=== PATIENT | male | born 1935 | race Caucasian/White ===

== ENCOUNTER 2017-08-25 19:55 | Inpatient (IN) ==
[2017-08-25 20:12] LABS: Basophils % 0.6 % (0.0-0.8); Hematocrit 41.8 VOL% (42.0-52.0); Hemoglobin 14.1 GM/DL (14.0-18.0); Immature Granulocytes % 0.6 %; Immature Granulocytes Absolute 0.02 #; Lymphocytes # 0.7 10*3/uL (1.4-4.0); Mean Corpuscular HGB Conc 33.7 GM/DL (32-36); Mean Corpuscular Hemoglobin 33 PG (27-34); Mean Platelet Volume 10.8 FL (9.6-12.0); Monocytes # 0.5 10*3/uL (0.11-0.8); Monocytes % 12.5 % (1.7-12.7); Neutrophils # 2.5 10*3/uL (1.4-7.4); Neutrophils % 68.3 % (38.7-73.9); Platelet Count 120 T/CUMM (130-400); Red Blood Count 4.31 MC/CUMM (3.8-5.5); Red Cell Distribution Width 13.4 % (9.3-17.3); White Blood Count 3.6 T/CUMM (4-12)
[2017-08-25 20:22] LABS: Ammonia < 10 UMOL/L (11-32)
[2017-08-25 20:27] LABS: Lactic Acid 1.3 MMOL/L (0.4-2.0)
[2017-08-25 20:29] LABS: Alanine Aminotransferase 17 U/L (16-61); Albumin 3.2 G/DL (3.4-5.0); Alkaline Phosphatase 75 U/L (45-117); Aspartate Amino Transferase 37 U/L (0-37); Bilirubin,Total < 0.39 MG/DL (0.2-1.0); Blood Urea Nitrogen 15 MG/DL (7-18); Calcium 7.9 MG/DL (8.5-10.1); Glucose 87 MG/DL (74-106); Osmolality,Calculated 265.4 MOS/KG (273-304); Sodium 133 MMOL/L (136-145)
[2017-08-25 20:32] LABS: Band Neutrophils 10 % (0-10); Lymphocytes 21 % (20-55); Segmented Neutrophils 66 % (50-85); Total Cells Counted 100
[2017-08-25 20:33] LABS: Platelet Estimate Adequate
[2017-08-25] MEDS ORDERED: SODIUM CHLORIDE 0.9% 1,000 ML IV STA (20:44)
[2017-08-25] MEDS ORDERED: ACETAMINOPHEN 325 MG TABLET PO ONE (20:44)
[2017-08-25] MEDS ORDERED: cefTRIAXone 1,000 MG in SODIUM CHLORIDE 0.9% 100 ML IV STA (22:06)
[2017-08-25] MEDS ORDERED: AZITHROMYCIN INJ 500 MG in SODIUM CHLORIDE 0.9% 250 ML IV STA (22:06)
[2017-08-25] MEDS ORDERED: SODIUM CHLORIDE 0.9% 1,000 ML IV ONE (22:06)
[2017-08-25 23:14] LABS: Apearance,Urine CLEAR (Clear); Bilirubin,Urine Negative (Negative); Blood, Urine Negative (Negative); Glucose,Urine (UA) Negative (Negative); Ketones,Urine 5 mg/dL (Negative); Mucus,Urine Occasional /LPF (Occasional); Nitrite,Urine Negative (Negative); Protein,Urine Negative; RBC,Urine 1 /HPF (0-4); Urine Color Yellow (Yellow); Urine Specific Gravity 1.012 (1.001-1.035); WBC,Urine <1 /HPF (0-6)
[2017-08-25] MEDS ORDERED: ONDANSETRON 4 MG/2 ML VIAL IV PRN (23:37)
[2017-08-25] MEDS ORDERED: NITROGLYCERIN SL 0.4 MG TABLET SL PRN (23:46)
[2017-08-26] MEDS ORDERED: AZITHROMYCIN INJ 500 MG in SODIUM CHLORIDE 0.9% 250 ML IV STA (00:14)
[2017-08-26] MEDS ORDERED: AZITHROMYCIN 500 MG VIAL IV ONE (00:16)
[2017-08-26] MEDS ORDERED: cefTRIAXone 1,000 MG in SYRINGE 1 EACH IV SCH (02:00)
[2017-08-26] MEDS: ALPRAZolam 0.25 MG TABLET PO SCH ×3 (03:05→21:30)
[2017-08-26] MEDS ORDERED: ALBUTEROL/IPRATROPIUM 3 ML NEB RESP TX PRN (03:30)
[2017-08-26] MEDS: SODIUM CHLORIDE 0.9% 1,000 ML IV SCH ×2 (03:40→16:36)
[2017-08-26 05:09] LABS: Basophils % 0.6 % (0.0-0.8); Hematocrit 38.6 VOL% (42.0-52.0); Immature Granulocytes % 0.9 %; Immature Granulocytes Absolute 0.03 #; Lymphocytes # 0.6 10*3/uL (1.4-4.0); Lymphocytes % 18.6 % (21.2-54.2); Mean Corpuscular HGB Conc 33.7 GM/DL (32-36); Mean Corpuscular Hemoglobin 33 PG (27-34); Mean Corpuscular Volume 97.2 FL (87-102); Mean Platelet Volume 11.1 FL (9.6-12.0); Monocytes # 0.3 10*3/uL (0.11-0.8); Monocytes % 9.8 % (1.7-12.7); Neutrophils # 2.4 10*3/uL (1.4-7.4); Neutrophils % 70.1 % (38.7-73.9); Platelet Count 100 T/CUMM (130-400); Red Blood Count 3.97 MC/CUMM (3.8-5.5); Red Cell Distribution Width 13.6 % (9.3-17.3); White Blood Count 3.4 T/CUMM (4-12)
[2017-08-26 05:42] LABS: Hypochromasia Slight; Microcytosis Slight
[2017-08-26 05:43] LABS: Platelet Estimate Decreased
[2017-08-26 06:03] LABS: Calcium 8.1 MG/DL (8.5-10.1); Osmolality,Calculated 273.7 MOS/KG (273-304); Potassium 3.9 MMOL/L (3.5-5.1); Risk Ratio 4.03; Thyroid Stimulating Hormone 1.03 uIU/ml (0.358-3.74); VLDL CHOLESTEROL 14.8 MG/DL
[2017-08-26] MEDS: CYANOCOBALAMIN 500 MCG TABLET PO SCH (08:58)
[2017-08-26] MEDS: ESCITALOPRAM 10 MG TABLET PO SCH (08:58)
[2017-08-26] MEDS ORDERED: APIXABAN 2.5 MG TABLET PO SCH (09:00)
[2017-08-26] MEDS: CLOPIDOGREL 75 MG TABLET PO SCH (12:04)
[2017-08-26] MEDS: NICOTINE 14 MG/24 HR PATCH TRANSDERM SCH (14:50)
[2017-08-26] MEDS: ACETAMINOPHEN 325 MG TABLET PO PRN (16:12)
[2017-08-26] MEDS: CARVEDILOL 3.125 MG TABLET PO SCH (21:30)
[2017-08-27] MEDS ORDERED: AZITHROMYCIN INJ 500 MG in SODIUM CHLORIDE 0.9% 250 ML IV SCH (02:00)
[2017-08-27] MEDS: cefTRIAXone 1,000 MG in SYRINGE 1 EACH IV SCH (03:03)
[2017-08-27] MEDS: SODIUM CHLORIDE 0.9% 1,000 ML IV SCH ×2 (03:45→17:55)
[2017-08-27] MEDS: ACETAMINOPHEN 325 MG TABLET PO PRN ×2 (05:48→17:55)
[2017-08-27 05:58] LABS: INR 1.1
[2017-08-27 06:05] LABS: Basophils % 0.4 % (0.0-0.8); Hematocrit 35.2 VOL% (42.0-52.0); Hemoglobin 12.5 GM/DL (14.0-18.0); Immature Granulocytes % 1.2 %; Immature Granulocytes Absolute 0.03 #; Lymphocytes # 0.5 10*3/uL (1.4-4.0); Lymphocytes % 20.5 % (21.2-54.2); Mean Corpuscular HGB Conc 35.5 GM/DL (32-36); Mean Corpuscular Hemoglobin 33 PG (27-34); Mean Corpuscular Volume 93.4 FL (87-102); Mean Platelet Volume 11.2 FL (9.6-12.0); Monocytes # 0.2 10*3/uL (0.11-0.8); Monocytes % 6.2 % (1.7-12.7); Neutrophils # 1.9 10*3/uL (1.4-7.4); Neutrophils % 71.7 % (38.7-73.9); Platelet Count 88 T/CUMM (130-400); Red Blood Count 3.77 MC/CUMM (3.8-5.5); Red Cell Distribution Width 13.6 % (9.3-17.3); White Blood Count 2.6 T/CUMM (4-12)
[2017-08-27 06:12] LABS: Calcium 7.3 MG/DL (8.5-10.1); Osmolality,Calculated 271.8 MOS/KG (273-304); Potassium 3.5 MMOL/L (3.5-5.1)
[2017-08-27 06:29] LABS: Band Neutrophils 17 % (0-10); Hypochromasia 1+; Lymphocytes 18 % (20-55); Segmented Neutrophils 57 % (50-85); Total Cells Counted 100
[2017-08-27 06:30] LABS: Microcytosis Slight; Platelet Estimate Decreased
[2017-08-27] MEDS ORDERED: MAGNESIUM SULF RIDER 2 GM in PREMIX 1 EACH IV PRN ×2 (08:42→08:55)
[2017-08-27] MEDS ORDERED: MAGNESIUM SULF RIDER 4 GM in PREMIX 1 EACH IV PRN ×2 (08:42→08:55)
[2017-08-27] MEDS: ALPRAZolam 0.25 MG TABLET PO SCH ×2 (10:26→21:57)
[2017-08-27] MEDS: CLOPIDOGREL 75 MG TABLET PO SCH (10:26)
[2017-08-27] MEDS: CYANOCOBALAMIN 500 MCG TABLET PO SCH (10:26)
[2017-08-27] MEDS: ESCITALOPRAM 10 MG TABLET PO SCH (10:27)
[2017-08-27] MEDS: NICOTINE 14 MG/24 HR PATCH TRANSDERM SCH (10:27)
[2017-08-27] MEDS: CARVEDILOL 3.125 MG TABLET PO SCH ×2 (10:27→21:57)
[2017-08-28] MEDS: cefTRIAXone 1,000 MG in SYRINGE 1 EACH IV SCH (03:00)
[2017-08-28] MEDS: SODIUM CHLORIDE 0.9% 1,000 ML IV SCH ×2 (05:32→13:04)
[2017-08-28 05:47] LABS: Basophils % 0.6 % (0.0-0.8); Hematocrit 38.9 VOL% (42.0-52.0); Hemoglobin 13.9 GM/DL (14.0-18.0); Immature Granulocytes % 1.4 %; Immature Granulocytes Absolute 0.05 #; Lymphocytes # 0.6 10*3/uL (1.4-4.0); Lymphocytes % 15.6 % (21.2-54.2); Mean Corpuscular HGB Conc 35.7 GM/DL (32-36); Mean Corpuscular Hemoglobin 33 PG (27-34); Monocytes # 0.3 10*3/uL (0.11-0.8); Monocytes % 7.8 % (1.7-12.7); Neutrophils # 2.7 10*3/uL (1.4-7.4); Neutrophils % 74.6 % (38.7-73.9); Red Blood Count 4.23 MC/CUMM (3.8-5.5); Red Cell Distribution Width 13.6 % (9.3-17.3); White Blood Count 3.6 T/CUMM (4-12)
[2017-08-28 05:54] LABS: Platelet Count 90 T/CUMM (130-400)
[2017-08-28] MEDS: CARVEDILOL 3.125 MG TABLET PO SCH ×2 (06:05→11:32)
[2017-08-28] MEDS: ACETAMINOPHEN 325 MG TABLET PO PRN (06:06)
[2017-08-28 06:17] LABS: Calcium 7.7 MG/DL (8.5-10.1); Osmolality,Calculated 268.1 MOS/KG (273-304); Potassium 3.5 MMOL/L (3.5-5.1)
[2017-08-28 06:23] LABS: Hypochromasia 1+; Microcytosis Slight; Ovalocytes Slight; Platelet Estimate Decreased
[2017-08-28] MEDS ORDERED: DILTIAZEM 100 MG VIAL.ADD IV ONE (06:30)
[2017-08-28] MEDS ORDERED: CLORAZEPATE 3.75 MG TABLET PO ONE (06:30)
[2017-08-28] MEDS ORDERED: SODIUM CHLORIDE 0.9% 100 ML IV ONE (06:31)
[2017-08-28] MEDS: DILTIAZEM INJ 100 MG in SODIUM CHLORIDE 0.9% 100 ML IV SCH ×2 (06:34→11:06)
[2017-08-28] MEDS ORDERED: LEVALBUTEROL 1.25 MG/3 ML NEB RESP TX ONE (06:52)
[2017-08-28] MEDS ORDERED: VECURONIUM 10 MG VIAL IV ONE (07:03)
[2017-08-28] MEDS ORDERED: ETOMIDATE 20 MG/10 ML VIAL IV ONE (07:03)
[2017-08-28] MEDS ORDERED: PROPOFOL 1,000 MG/100 ML BOTTLE IV ONE (07:11)
[2017-08-28] MEDS: PROPOFOL 1,000 MG/100 ML BOTTLE IV SCH (07:30)
[2017-08-28 07:53] LABS: Osmolality,Calculated 268.2 MOS/KG (273-304); Potassium 3.7 MMOL/L (3.5-5.1)
[2017-08-28] MEDS ORDERED: FUROSEMIDE 40 MG/4 ML VIAL ONE (08:22)
[2017-08-28] MEDS ORDERED: MAGNESIUM SULF RIDER 2 GM in PREMIX 1 EACH IV PRN (08:35)
[2017-08-28] MEDS ORDERED: MAGNESIUM SULF RIDER 4 GM in PREMIX 1 EACH IV PRN (08:35)
[2017-08-28] MEDS ORDERED: AZITHROMYCIN 250 MG TABLET PO SCH (09:00)
[2017-08-28] MEDS ORDERED: SOTALOL 80 MG TABLET PO SCH (09:00)
[2017-08-28 10:04] LABS: Apearance,Urine CLEAR (Clear); Bacteria,Urine Occasional /HPF (Few); Bilirubin,Urine Negative (Negative); Blood, Urine Small mg/dL (Negative); Glucose,Urine (UA) Negative (Negative); Ketones,Urine Negative (Negative); Mucus,Urine Occasional /LPF (Occasional); Nitrite,Urine Negative (Negative); Protein,Urine Negative; RBC,Urine <1 /HPF (0-4); Urine Color Yellow (Yellow); Urine Specific Gravity 1.021 (1.001-1.035); Urine Urobilinogen < 2.0 EU/DL (0.2-1.0); WBC,Urine 1 /HPF (0-6)
[2017-08-28 10:17] LABS: ABG Base Excess -4.4 MMOL/L (-2.5-2.5); ABG HCO3 20.9 MMOL/L (20-26); ABG Oxygen Saturation 99.5 % (95-100); ABG PCO2 44.4 MM HG (35-48); ABG PH 7.307 (7.35-7.45)
[2017-08-28 10:17] LABS: CKMB % 1.3 %
[2017-08-28 10:21] LABS: Troponin I Only 1.99 NG/ML (0.00-0.045)
[2017-08-28] MEDS: FUROSEMIDE 40 MG/4 ML VIAL IV SCH ×2 (11:30→17:38)
[2017-08-28] MEDS ORDERED: FUROSEMIDE 40 MG/4 ML VIAL IV ONE (11:32)
[2017-08-28] MEDS: ENOXAPARIN 60 MG/0.6 ML SYRINGE SUBCUT SCH ×2 (11:38→21:35)
[2017-08-28] MEDS: NICOTINE 14 MG/24 HR PATCH TRANSDERM SCH (11:39)
[2017-08-28] MEDS: ASPIRIN EC 81 MG TABLET PO SCH (11:39)
[2017-08-28] MEDS: CYANOCOBALAMIN 500 MCG TABLET PO SCH (11:39)
[2017-08-28] MEDS: ALPRAZolam 0.25 MG TABLET PO SCH ×2 (11:39→21:35)
[2017-08-28] MEDS: CARVEDILOL 6.25 MG TABLET PO SCH ×2 (11:39→21:35)
[2017-08-28] MEDS: CLOPIDOGREL 75 MG TABLET PO SCH (11:39)
[2017-08-28] MEDS: ESCITALOPRAM 10 MG TABLET PO SCH (11:39)
[2017-08-28] MEDS: VANCOMYCIN INJ 750 MG in SODIUM CHLORIDE 0.9% 250 ML IV SCH ×2 (11:40→21:57)
[2017-08-28] MEDS: MEROPENEM 1,000 MG in SYRINGE 1 EACH IV SCH ×2 (12:06→18:00)
[2017-08-28 12:57] LABS: CKMB % 2.2 %
[2017-08-28 13:00] LABS: Troponin I Only 3.88 NG/ML (0.00-0.045)
[2017-08-28] MEDS ORDERED: DIGOXIN 0.5 MG/2 ML AMP IV ONE (13:15)
[2017-08-28] MEDS: DILTIAZEM 30 MG TABLET PO SCH ×3 (14:00→21:52)
[2017-08-28 15:49] LABS: Troponin I Only 4.75 NG/ML (0.00-0.045)
[2017-08-28] MEDS ORDERED: FUROSEMIDE 40 MG/4 ML VIAL IV SCH (16:00)
[2017-08-29] MEDS: MEROPENEM 1,000 MG in SYRINGE 1 EACH IV SCH ×3 (01:05→20:37)
[2017-08-29 03:19] LABS: ABG Base Excess -3.1 MMOL/L (-2.5-2.5); ABG HCO3 21.9 MMOL/L (20-26); ABG Oxygen Saturation 99.9 % (95-100); ABG PCO2 31.3 MM HG (35-48); ABG PH 7.419 (7.35-7.45); ABG TCO2 17.4 MMOL/L (23-27); Allen Test Positive; Pt O2 Delivery Device Ventilator
[2017-08-29 05:10] LABS: Basophils % 0.2 % (0.0-0.8); Hematocrit 40.6 VOL% (42.0-52.0); Immature Granulocytes % 0.9 %; Immature Granulocytes Absolute 0.05 #; Lymphocytes # 0.6 10*3/uL (1.4-4.0); Lymphocytes % 10.5 % (21.2-54.2); Mean Corpuscular HGB Conc 34.5 GM/DL (32-36); Mean Corpuscular Hemoglobin 32 PG (27-34); Mean Corpuscular Volume 93.8 FL (87-102); Mean Platelet Volume 12.5 FL (9.6-12.0); Monocytes # 0.4 10*3/uL (0.11-0.8); Monocytes % 6.3 % (1.7-12.7); Neutrophils # 4.7 10*3/uL (1.4-7.4); Neutrophils % 82.1 % (38.7-73.9); Platelet Count 108 T/CUMM (130-400); Red Blood Count 4.33 MC/CUMM (3.8-5.5); White Blood Count 5.7 T/CUMM (4-12)
[2017-08-29 05:47] LABS: Hypochromasia Slight; Ovalocytes Slight; Platelet Estimate Decreased
[2017-08-29 05:48] LABS: Microcytosis Slight
[2017-08-29 06:04] LABS: Calcium 7.9 MG/DL (8.5-10.1); Osmolality,Calculated 278.8 MOS/KG (273-304); Potassium 3.7 MMOL/L (3.5-5.1)
[2017-08-29 06:05] LABS: Troponin I Only 2.2 NG/ML (0.00-0.045)
[2017-08-29] MEDS: POTASSIUM CHLORIDE RIDER 10 MEQ in PREMIX 1 EACH IV PRN (06:15)
[2017-08-29] MEDS: DILTIAZEM INJ 100 MG in SODIUM CHLORIDE 0.9% 100 ML IV SCH (07:12)
[2017-08-29] MEDS: NICOTINE 14 MG/24 HR PATCH TRANSDERM SCH (08:40)
[2017-08-29] MEDS: FUROSEMIDE 40 MG/4 ML VIAL IV SCH ×2 (08:40→16:28)
[2017-08-29] MEDS: CARVEDILOL 6.25 MG TABLET PO SCH ×2 (08:41→20:19)
[2017-08-29] MEDS: DILTIAZEM 30 MG TABLET PO SCH ×4 (08:41→20:19)
[2017-08-29] MEDS: ESCITALOPRAM 10 MG TABLET PO SCH (08:41)
[2017-08-29] MEDS: CLOPIDOGREL 75 MG TABLET PO SCH (08:41)
[2017-08-29] MEDS: ASPIRIN EC 81 MG TABLET PO SCH (08:41)
[2017-08-29] MEDS: CYANOCOBALAMIN 500 MCG TABLET PO SCH (08:41)
[2017-08-29] MEDS: ALPRAZolam 0.25 MG TABLET PO SCH ×2 (08:41→20:20)
[2017-08-29] MEDS: ENOXAPARIN 60 MG/0.6 ML SYRINGE SUBCUT SCH ×2 (08:41→20:19)
[2017-08-29 10:04] LABS: ABG Base Excess -0.3 MMOL/L (-2.5-2.5); ABG HCO3 23.4 MMOL/L (20-26); ABG Oxygen Saturation 97.7 % (95-100); ABG PCO2 35.6 MM HG (35-48); ABG PH 7.435 (7.35-7.45); ABG PO2 103.4 MM HG (80-95); ABG TCO2 24.5 MMOL/L (23-27)
[2017-08-29] MEDS: PROPOFOL 1,000 MG/100 ML BOTTLE IV SCH (11:13)
[2017-08-29] MEDS: SODIUM CHLORIDE 0.9% 1,000 ML IV SCH (18:22)
[2017-08-29] MEDS: VANCOMYCIN INJ 750 MG in SODIUM CHLORIDE 0.9% 250 ML IV SCH (20:37)
[2017-08-30 03:51] LABS: ABG Base Excess 4.6 MMOL/L (-2.5-2.5); ABG HCO3 28.3 MMOL/L (20-26); ABG Oxygen Saturation 98.9 % (95-100); ABG PCO2 38.7 MM HG (35-48); ABG PH 7.482 (7.35-7.45); ABG PO2 158.5 MM HG (80-95); ABG TCO2 29.5 MMOL/L (23-27)
[2017-08-30 05:13] LABS: Basophils % 0.5 % (0.0-0.8); Hematocrit 38.6 VOL% (42.0-52.0); Hemoglobin 13.7 GM/DL (14.0-18.0); Immature Granulocytes % 0.9 %; Immature Granulocytes Absolute 0.04 #; Lymphocytes # 0.7 10*3/uL (1.4-4.0); Mean Corpuscular HGB Conc 35.5 GM/DL (32-36); Mean Corpuscular Hemoglobin 33 PG (27-34); Mean Corpuscular Volume 92.3 FL (87-102); Mean Platelet Volume 11.7 FL (9.6-12.0); Monocytes # 0.4 10*3/uL (0.11-0.8); Monocytes % 7.9 % (1.7-12.7); Neutrophils # 3.3 10*3/uL (1.4-7.4); Neutrophils % 74.7 % (38.7-73.9); Platelet Count 149 T/CUMM (130-400); Red Blood Count 4.18 MC/CUMM (3.8-5.5); Red Cell Distribution Width 13.8 % (9.3-17.3); White Blood Count 4.4 T/CUMM (4-12)
[2017-08-30 06:50] LABS: Hypochromasia 1+; Target Cells Slight
[2017-08-30 07:43] LABS: Calcium 7.8 MG/DL (8.5-10.1); Osmolality,Calculated 277.8 MOS/KG (273-304); Potassium 3.2 MMOL/L (3.5-5.1)
[2017-08-30] MEDS: ENOXAPARIN 60 MG/0.6 ML SYRINGE SUBCUT SCH ×2 (08:42→20:04)
[2017-08-30] MEDS: FUROSEMIDE 40 MG/4 ML VIAL IV SCH ×2 (08:42→15:41)
[2017-08-30] MEDS: MEROPENEM 1,000 MG in SYRINGE 1 EACH IV SCH ×2 (08:42→20:05)
[2017-08-30] MEDS: DILTIAZEM 30 MG TABLET PO SCH ×4 (08:43→22:02)
[2017-08-30] MEDS: CYANOCOBALAMIN 500 MCG TABLET PO SCH (08:43)
[2017-08-30] MEDS: CLOPIDOGREL 75 MG TABLET PO SCH (08:43)
[2017-08-30] MEDS: ALPRAZolam 0.25 MG TABLET PO SCH ×2 (08:43→20:04)
[2017-08-30] MEDS: ASPIRIN EC 81 MG TABLET PO SCH (08:43)
[2017-08-30] MEDS: CARVEDILOL 6.25 MG TABLET PO SCH ×2 (08:43→20:04)
[2017-08-30] MEDS: NICOTINE 14 MG/24 HR PATCH TRANSDERM SCH (08:43)
[2017-08-30] MEDS: ESCITALOPRAM 10 MG TABLET PO SCH (08:43)
[2017-08-30] MEDS: POTASSIUM CHLORIDE 20 MEQ TABLET PO SCH ×3 (13:15→20:03)
[2017-08-30] MEDS: ISOSORBIDE MONONITRATE 30 MG TABLET PO SCH (13:20)
[2017-08-30] MEDS: VANCOMYCIN INJ 750 MG in SODIUM CHLORIDE 0.9% 250 ML IV SCH (20:04)
[2017-08-30] MEDS: ZINC OXIDE PASTE 113 GM TUBE TOP SCH (20:06)
[2017-08-31 04:40] LABS: Basophils % 0.5 % (0.0-0.8); Eosinophils % 0.2 % (0.00-10.9); Hemoglobin 13.3 GM/DL (14.0-18.0); Immature Granulocytes % 1.2 %; Immature Granulocytes Absolute 0.05 #; Lymphocytes # 0.9 10*3/uL (1.4-4.0); Lymphocytes % 22.9 % (21.2-54.2); Mean Corpuscular Hemoglobin 32 PG (27-34); Mean Corpuscular Volume 92.7 FL (87-102); Mean Platelet Volume 11.3 FL (9.6-12.0); Monocytes # 0.4 10*3/uL (0.11-0.8); Monocytes % 8.7 % (1.7-12.7); Neutrophils # 2.7 10*3/uL (1.4-7.4); Neutrophils % 66.5 % (38.7-73.9); Platelet Count 159 T/CUMM (130-400); Red Cell Distribution Width 13.6 % (9.3-17.3)
[2017-08-31 05:12] LABS: Band Neutrophils 5 % (0-10); Eosinophils 1 % (0-10); Lymphocytes 21 % (20-55); Platelet Estimate Normal; Segmented Neutrophils 66 % (50-85); Total Cells Counted 100
[2017-08-31 05:13] LABS: Hypochromasia 1+; Microcytosis Slight; Ovalocytes Slight
[2017-08-31 05:15] LABS: Calcium 7.9 MG/DL (8.5-10.1); Osmolality,Calculated 281.7 MOS/KG (273-304); Potassium 3.3 MMOL/L (3.5-5.1)
[2017-08-31] MEDS: POTASSIUM CHLORIDE RIDER 10 MEQ in PREMIX 1 EACH IV PRN ×4 (05:44→09:35)
[2017-08-31] MEDS: MEROPENEM 1,000 MG in SYRINGE 1 EACH IV SCH ×2 (08:32→21:26)
[2017-08-31] MEDS: ALPRAZolam 0.25 MG TABLET PO SCH ×2 (08:36→21:27)
[2017-08-31] MEDS: CLOPIDOGREL 75 MG TABLET PO SCH (08:36)
[2017-08-31] MEDS: DILTIAZEM 30 MG TABLET PO SCH ×5 (08:36→22:13)
[2017-08-31] MEDS: ASPIRIN EC 81 MG TABLET PO SCH (08:38)
[2017-08-31] MEDS: CYANOCOBALAMIN 500 MCG TABLET PO SCH (08:38)
[2017-08-31] MEDS: CARVEDILOL 6.25 MG TABLET PO SCH ×2 (08:38→22:13)
[2017-08-31] MEDS: ISOSORBIDE MONONITRATE 30 MG TABLET PO SCH (08:39)
[2017-08-31] MEDS: FUROSEMIDE 40 MG TABLET PO SCH ×2 (08:39→16:13)
[2017-08-31] MEDS: ESCITALOPRAM 10 MG TABLET PO SCH (08:39)
[2017-08-31] MEDS: NICOTINE 14 MG/24 HR PATCH TRANSDERM SCH (08:42)
[2017-08-31] MEDS: ENOXAPARIN 60 MG/0.6 ML SYRINGE SUBCUT SCH ×2 (08:43→21:26)
[2017-08-31] MEDS: SPIRONOLACTONE 25 MG TABLET PO SCH (13:04)
[2017-08-31] MEDS: ASCORBIC ACID 500 MG TABLET PO SCH ×2 (13:04→21:27)
[2017-08-31] MEDS: ZINC OXIDE PASTE 113 GM TUBE TOP SCH ×2 (13:10→21:30)
[2017-08-31] MEDS: POTASSIUM CHLORIDE 8 MEQ CAPSULE PO SCH ×2 (16:02→21:26)
[2017-08-31] MEDS: VANCOMYCIN INJ 750 MG in SODIUM CHLORIDE 0.9% 250 ML IV SCH (21:29)
[2017-09-01 05:47] LABS: Basophils % 0.4 % (0.0-0.8); Eosinophils % 0.8 % (0.00-10.9); Hematocrit 35.8 VOL% (42.0-52.0); Hemoglobin 12.8 GM/DL (14.0-18.0); Immature Granulocytes Absolute 0.05 #; Lymphocytes # 1.2 10*3/uL (1.4-4.0); Lymphocytes % 24.7 % (21.2-54.2); Mean Corpuscular HGB Conc 35.8 GM/DL (32-36); Mean Corpuscular Hemoglobin 33 PG (27-34); Mean Corpuscular Volume 92.5 FL (87-102); Mean Platelet Volume 10.9 FL (9.6-12.0); Monocytes # 0.5 10*3/uL (0.11-0.8); Monocytes % 10.9 % (1.7-12.7); Neutrophils % 62.2 % (38.7-73.9); Platelet Count 175 T/CUMM (130-400); Red Blood Count 3.87 MC/CUMM (3.8-5.5); Red Cell Distribution Width 13.4 % (9.3-17.3); White Blood Count 4.8 T/CUMM (4-12)
[2017-09-01 06:17] LABS: Calcium 7.8 MG/DL (8.5-10.1); Osmolality,Calculated 278.8 MOS/KG (273-304); Potassium 3.5 MMOL/L (3.5-5.1)
[2017-09-01 06:32] LABS: Band Neutrophils 6 % (0-10); Lymphocytes 19 % (20-55); Segmented Neutrophils 70 % (50-85); Total Cells Counted 100
[2017-09-01 06:33] LABS: Hypochromasia 1+; Microcytosis Slight; Ovalocytes Slight; Platelet Estimate Normal
[2017-09-01] MEDS: POTASSIUM CHLORIDE 8 MEQ CAPSULE PO SCH ×3 (08:41→21:47)
[2017-09-01] MEDS: CYANOCOBALAMIN 500 MCG TABLET PO SCH (08:41)
[2017-09-01] MEDS: ALPRAZolam 0.25 MG TABLET PO SCH ×2 (08:41→21:47)
[2017-09-01] MEDS: FUROSEMIDE 40 MG TABLET PO SCH ×2 (08:43→17:29)
[2017-09-01] MEDS: CARVEDILOL 6.25 MG TABLET PO SCH ×2 (08:43→21:47)
[2017-09-01] MEDS: CLOPIDOGREL 75 MG TABLET PO SCH (08:43)
[2017-09-01] MEDS: ISOSORBIDE MONONITRATE 30 MG TABLET PO SCH (08:44)
[2017-09-01] MEDS: SPIRONOLACTONE 25 MG TABLET PO SCH (08:44)
[2017-09-01] MEDS: MEROPENEM 1,000 MG in SYRINGE 1 EACH IV SCH ×2 (08:44→21:46)
[2017-09-01] MEDS: VANCOMYCIN INJ 750 MG in SODIUM CHLORIDE 0.9% 250 ML IV SCH ×2 (08:45→21:46)
[2017-09-01] MEDS: NICOTINE 14 MG/24 HR PATCH TRANSDERM SCH (08:45)
[2017-09-01] MEDS: ENOXAPARIN 60 MG/0.6 ML SYRINGE SUBCUT SCH ×2 (08:45→21:46)
[2017-09-01] MEDS: ZINC OXIDE PASTE 113 GM TUBE TOP SCH ×2 (08:51→21:48)
[2017-09-01] MEDS: DILTIAZEM 30 MG TABLET PO SCH ×5 (08:51→21:37)
[2017-09-01] MEDS: ASPIRIN EC 81 MG TABLET PO SCH (08:54)
[2017-09-01] MEDS: ESCITALOPRAM 10 MG TABLET PO SCH (08:54)
[2017-09-01] MEDS: ASCORBIC ACID 500 MG TABLET PO SCH ×2 (09:56→21:47)
[2017-09-02] MEDS: ACETAMINOPHEN 325 MG TABLET PO PRN (00:38)
[2017-09-02] MEDS: POTASSIUM CHLORIDE RIDER 10 MEQ in PREMIX 1 EACH IV PRN (00:39)
[2017-09-02 05:54] LABS: Basophils % 0.4 % (0.0-0.8); Eosinophils # 0.1 10*3/uL (0.0-0.87); Eosinophils % 1.5 % (0.00-10.9); Hematocrit 31.7 VOL% (42.0-52.0); Hemoglobin 11.3 GM/DL (14.0-18.0); Immature Granulocytes % 1.3 %; Immature Granulocytes Absolute 0.06 #; Lymphocytes # 1.4 10*3/uL (1.4-4.0); Lymphocytes % 29.3 % (21.2-54.2); Mean Corpuscular HGB Conc 35.6 GM/DL (32-36); Mean Corpuscular Hemoglobin 33 PG (27-34); Mean Corpuscular Volume 92.7 FL (87-102); Mean Platelet Volume 11.7 FL (9.6-12.0); Monocytes # 0.4 10*3/uL (0.11-0.8); Monocytes % 9.4 % (1.7-12.7); Neutrophils # 2.7 10*3/uL (1.4-7.4); Neutrophils % 58.1 % (38.7-73.9); Platelet Count 172 T/CUMM (130-400); Red Blood Count 3.42 MC/CUMM (3.8-5.5); Red Cell Distribution Width 13.4 % (9.3-17.3); White Blood Count 4.7 T/CUMM (4-12)
[2017-09-02 06:21] LABS: Calcium 7.6 MG/DL (8.5-10.1); Osmolality,Calculated 276.8 MOS/KG (273-304); Potassium 3.7 MMOL/L (3.5-5.1)
[2017-09-02] MEDS: MEROPENEM 1,000 MG in SYRINGE 1 EACH IV SCH ×2 (11:31→21:46)
[2017-09-02] MEDS: CLOPIDOGREL 75 MG TABLET PO SCH (11:47)
[2017-09-02] MEDS: CYANOCOBALAMIN 500 MCG TABLET PO SCH (11:47)
[2017-09-02] MEDS: CARVEDILOL 6.25 MG TABLET PO SCH ×2 (11:48→21:46)
[2017-09-02] MEDS: ASCORBIC ACID 500 MG TABLET PO SCH ×2 (11:48→21:45)
[2017-09-02] MEDS: VANCOMYCIN INJ 750 MG in SODIUM CHLORIDE 0.9% 250 ML IV SCH ×2 (11:50→21:51)
[2017-09-02] MEDS: DILTIAZEM 30 MG TABLET PO SCH ×4 (11:52→21:54)
[2017-09-02] MEDS: ALPRAZolam 0.25 MG TABLET PO SCH ×2 (11:53→21:46)
[2017-09-02] MEDS: FUROSEMIDE 40 MG TABLET PO SCH ×2 (11:53→17:27)
[2017-09-02] MEDS: ESCITALOPRAM 10 MG TABLET PO SCH (11:53)
[2017-09-02] MEDS: ASPIRIN EC 81 MG TABLET PO SCH (11:54)
[2017-09-02] MEDS: POTASSIUM CHLORIDE 8 MEQ CAPSULE PO SCH ×3 (11:54→21:45)
[2017-09-02] MEDS: ISOSORBIDE MONONITRATE 30 MG TABLET PO SCH (11:54)
[2017-09-02] MEDS: SPIRONOLACTONE 25 MG TABLET PO SCH (11:54)
[2017-09-02] MEDS: NICOTINE 14 MG/24 HR PATCH TRANSDERM SCH (12:03)
[2017-09-02] MEDS: ZINC OXIDE PASTE 113 GM TUBE TOP SCH ×2 (22:55→22:56)
[2017-09-02] MEDS: ENOXAPARIN 60 MG/0.6 ML SYRINGE SUBCUT SCH ×2 (22:55→22:56)
[2017-09-03 04:58] LABS: Basophils % 0.3 % (0.0-0.8); Eosinophils # 0.1 10*3/uL (0.0-0.87); Eosinophils % 2.3 % (0.00-10.9); Hematocrit 32.1 VOL% (42.0-52.0); Hemoglobin 10.9 GM/DL (14.0-18.0); Immature Granulocytes Absolute 0.06 #; Lymphocytes # 1.6 10*3/uL (1.4-4.0); Lymphocytes % 26.4 % (21.2-54.2); Mean Corpuscular Hemoglobin 32 PG (27-34); Mean Corpuscular Volume 94.1 FL (87-102); Mean Platelet Volume 10.9 FL (9.6-12.0); Monocytes # 0.6 10*3/uL (0.11-0.8); Monocytes % 9.5 % (1.7-12.7); Neutrophils # 3.7 10*3/uL (1.4-7.4); Neutrophils % 60.5 % (38.7-73.9); Platelet Count 210 T/CUMM (130-400); Red Blood Count 3.41 MC/CUMM (3.8-5.5); Red Cell Distribution Width 13.5 % (9.3-17.3); White Blood Count 6.1 T/CUMM (4-12)
[2017-09-03 05:27] LABS: Calcium 7.5 MG/DL (8.5-10.1); Osmolality,Calculated 277.7 MOS/KG (273-304); Potassium 3.5 MMOL/L (3.5-5.1)
[2017-09-03] MEDS ORDERED: DILTIAZEM CD 120 MG CAPSULE PO SCH (09:00)
[2017-09-03] MEDS: CYANOCOBALAMIN 500 MCG TABLET PO SCH (10:28)
[2017-09-03] MEDS: SPIRONOLACTONE 25 MG TABLET PO SCH (10:28)
[2017-09-03] MEDS: ESCITALOPRAM 10 MG TABLET PO SCH (10:29)
[2017-09-03] MEDS: FUROSEMIDE 40 MG TABLET PO SCH (10:29)
[2017-09-03] MEDS: ISOSORBIDE MONONITRATE 30 MG TABLET PO SCH (10:29)
[2017-09-03] MEDS: ALPRAZolam 0.25 MG TABLET PO SCH (10:30)
[2017-09-03] MEDS: CLOPIDOGREL 75 MG TABLET PO SCH (10:31)
[2017-09-03] MEDS: POTASSIUM CHLORIDE 8 MEQ CAPSULE PO SCH (10:31)
[2017-09-03] MEDS: ENOXAPARIN 60 MG/0.6 ML SYRINGE SUBCUT SCH (10:32)
[2017-09-03] MEDS: CARVEDILOL 6.25 MG TABLET PO SCH (10:33)
[2017-09-03] MEDS: NICOTINE 14 MG/24 HR PATCH TRANSDERM SCH (10:33)
[2017-09-03] MEDS: MEROPENEM 1,000 MG in SYRINGE 1 EACH IV SCH (10:34)
[2017-09-03] MEDS: ASPIRIN EC 81 MG TABLET PO SCH (10:38)
[2017-09-03 17:06] VITALS: BP 97/56
[2017-09-03] MEDS ORDERED: APIXABAN 2.5 MG TABLET PO SCH (21:00)
[2017-09-04] MEDS ORDERED: ENOXAPARIN 40 MG/0.4 ML SYRINGE SUBCUT SCH (09:00)
== END 2017-09-03 17:17 | disposition swing bed (61) | DRG 871 ==
LOC: EDBD → EDUNIT# → N.ED 19:55 → N.EDINP 23:29 → SUATTDRO 23:58 → N.TELES 08-26 00:05 → N.ICU 08-28 07:02 → N.TELES 09-01 11:04

== ENCOUNTER 2018-10-20 15:14 | Inpatient (IN) ==
[2018-10-20 15:50] LABS: Basophils % 0.4 % (0.0-0.8); Eosinophils % 0.5 % (0.00-10.9); Hematocrit 41.4 VOL% (42.0-52.0); Hemoglobin 13.2 GM/DL (14.0-18.0); Immature Granulocytes % 0.6 %; Immature Granulocytes Absolute 0.05 #; Lymphocytes # 0.7 10*3/uL (1.4-4.0); Lymphocytes % 8.1 % (21.2-54.2); Mean Corpuscular HGB Conc 31.9 GM/DL (32-36); Mean Corpuscular Volume 99.3 FL (87-102); Mean Platelet Volume 10.1 FL (9.6-12.0); Monocytes % 5.5 % (1.7-12.7); Neutrophils % 84.9 % (38.7-73.9); Platelet Count 145 T/CUMM (130-400); Red Blood Count 4.17 MC/CUMM (3.8-5.5); Red Cell Distribution Width 13.3 % (9.3-17.3); White Blood Count 8.3 T/CUMM (4-12)
[2018-10-20 16:00] LABS: PT Patient Result 10.8 SECS; Partial Thromboplastin Time 25.3 SECS (0-40)
[2018-10-20 16:09] LABS: Apearance,Urine CLEAR (Clear); Bilirubin,Urine Negative (Negative); Blood, Urine Negative (Negative); Glucose,Urine (UA) Negative (Negative); Ketones,Urine Negative (Negative); Mucus,Urine Occasional /LPF (Occasional); Nitrite,Urine Negative (Negative); Protein,Urine Negative; RBC,Urine 2 /HPF (0-4); Urine Color Yellow (Yellow); Urine Specific Gravity 1.011 (1.001-1.035); Urine Urobilinogen < 2.0 EU/DL (0.2-1.0); WBC,Urine 1 /HPF (0-6)
[2018-10-20 16:12] LABS: Alanine Aminotransferase 14 U/L (16-61); Albumin 3.3 G/DL (3.4-5.0); Alkaline Phosphatase 85 U/L (45-117); Aspartate Amino Transferase 19 U/L (0-37); Blood Urea Nitrogen 14 MG/DL (7-18); Calcium 8.7 MG/DL (8.5-10.1); Glucose 98 MG/DL (74-106); Osmolality,Calculated 283.1 MOS/KG (273-304); Total Protein 7.1 G/DL (6.4-8.3)
[2018-10-20 16:16] LABS: Barbiturates Screen,Urine Negative (Negative); Benzodiazepines Screen,Urine Positive (Negative); Cannabinoid Screen,Urine Negative (Negative); Opiate Screen,Urine Negative (Negative); Phencyclidine Screen,Urine Negative (Negative)
[2018-10-20] MEDS ORDERED: ACETAMINOPHEN 325 MG TABLET PO PRN (17:15)
[2018-10-20] MEDS ORDERED: NICOTINE 21 MG/24 HR PATCH TRANSDERM PRN (17:15)
[2018-10-20] MEDS ORDERED: NITROGLYCERIN SL 0.4 MG TABLET SL PRN (17:18)
[2018-10-20] MEDS ORDERED: SPIRONOLACTONE 25 MG TABLET PO PRN (17:18)
[2018-10-20] MEDS: ALPRAZolam 0.25 MG TABLET PO SCH (21:21)
[2018-10-20] MEDS: ATORVASTATIN 80 MG TABLET PO SCH (21:21)
[2018-10-21 04:55] LABS: Basophils % 0.5 % (0.0-0.8); Eosinophils # 0.1 10*3/uL (0.0-0.87); Eosinophils % 2.2 % (0.00-10.9); Hemoglobin 13.4 GM/DL (14.0-18.0); Immature Granulocytes % 0.5 %; Immature Granulocytes Absolute 0.03 #; Lymphocytes # 0.9 10*3/uL (1.4-4.0); Lymphocytes % 14.2 % (21.2-54.2); Mean Corpuscular HGB Conc 31.9 GM/DL (32-36); Mean Corpuscular Volume 99.8 FL (87-102); Mean Platelet Volume 10.4 FL (9.6-12.0); Monocytes % 8.5 % (1.7-12.7); Neutrophils % 74.1 % (38.7-73.9); Platelet Count 142 T/CUMM (130-400); Red Blood Count 4.21 MC/CUMM (3.8-5.5); Red Cell Distribution Width 13.4 % (9.3-17.3); White Blood Count 6.4 T/CUMM (4-12)
[2018-10-21 05:31] LABS: Albumin 3.3 G/DL (3.4-5.0); Calcium 9.1 MG/DL (8.5-10.1); Osmolality,Calculated 280.1 MOS/KG (273-304); Total Protein 6.8 G/DL (6.4-8.3); VLDL CHOLESTEROL 13.8 MG/DL
[2018-10-21 05:32] LABS: Risk Ratio 3.29; Thyroid Stimulating Hormone 1.92 uIU/ml (0.358-3.74)
[2018-10-21] MEDS ORDERED: CLOPIDOGREL 75 MG TABLET PO SCH (09:00)
[2018-10-21] MEDS: ALPRAZolam 0.25 MG TABLET PO SCH ×2 (09:33→21:15)
[2018-10-21] MEDS: ESCITALOPRAM 10 MG TABLET PO SCH (09:33)
[2018-10-21] MEDS: ASPIRIN EC 81 MG TABLET PO SCH (09:33)
[2018-10-21] MEDS: APIXABAN 5 MG TABLET PO SCH ×2 (09:34→21:16)
[2018-10-21] MEDS: ATORVASTATIN 80 MG TABLET PO SCH (21:16)
[2018-10-22 05:17] LABS: Basophils % 0.4 % (0.0-0.8); Eosinophils # 0.1 10*3/uL (0.0-0.87); Eosinophils % 1.5 % (0.00-10.9); Hematocrit 43.3 VOL% (42.0-52.0); Hemoglobin 14.5 GM/DL (14.0-18.0); Immature Granulocytes % 0.4 %; Immature Granulocytes Absolute 0.03 #; Lymphocytes # 1.1 10*3/uL (1.4-4.0); Lymphocytes % 14.9 % (21.2-54.2); Mean Corpuscular HGB Conc 33.5 GM/DL (32-36); Mean Corpuscular Volume 97.1 FL (87-102); Mean Platelet Volume 10.6 FL (9.6-12.0); Monocytes % 9.1 % (1.7-12.7); Neutrophils % 73.7 % (38.7-73.9); Platelet Count 153 T/CUMM (130-400); Red Blood Count 4.46 MC/CUMM (3.8-5.5); Red Cell Distribution Width 13.2 % (9.3-17.3); White Blood Count 7.5 T/CUMM (4-12)
[2018-10-22 06:28] LABS: Albumin 3.4 G/DL (3.4-5.0); Bilirubin,Total 0.8 MG/DL (0.2-1.0); Calcium 9.1 MG/DL (8.5-10.1); Osmolality,Calculated 277.4 MOS/KG (273-304); Total Protein 7.4 G/DL (6.4-8.3)
[2018-10-22] MEDS: ESCITALOPRAM 10 MG TABLET PO SCH (09:41)
[2018-10-22] MEDS: ASPIRIN EC 81 MG TABLET PO SCH (09:41)
[2018-10-22] MEDS: APIXABAN 5 MG TABLET PO SCH ×2 (09:41→20:39)
[2018-10-22] MEDS: LOSARTAN 25 MG TABLET PO SCH ×2 (09:41→09:42)
[2018-10-22] MEDS: ALPRAZolam 0.25 MG TABLET PO SCH ×2 (09:41→20:39)
[2018-10-22] MEDS: ATORVASTATIN 80 MG TABLET PO SCH (20:39)
[2018-10-23 05:38] LABS: Basophils % 0.5 % (0.0-0.8); Eosinophils # 0.2 10*3/uL (0.0-0.87); Eosinophils % 2.5 % (0.00-10.9); Hemoglobin 14.2 GM/DL (14.0-18.0); Immature Granulocytes % 0.4 %; Immature Granulocytes Absolute 0.03 #; Lymphocytes # 0.9 10*3/uL (1.4-4.0); Lymphocytes % 11.9 % (21.2-54.2); Mean Corpuscular Volume 95.6 FL (87-102); Mean Platelet Volume 10.6 FL (9.6-12.0); Monocytes % 8.7 % (1.7-12.7); Platelet Count 158 T/CUMM (130-400); Red Cell Distribution Width 13.2 % (9.3-17.3); White Blood Count 7.7 T/CUMM (4-12)
[2018-10-23 05:56] LABS: Albumin 3.1 G/DL (3.4-5.0); Bilirubin,Total 0.6 MG/DL (0.2-1.0); Calcium 8.7 MG/DL (8.5-10.1); Osmolality,Calculated 280.3 MOS/KG (273-304); Total Protein 6.8 G/DL (6.4-8.3)
[2018-10-23] MEDS: APIXABAN 5 MG TABLET PO SCH (08:44)
[2018-10-23] MEDS: ESCITALOPRAM 10 MG TABLET PO SCH (08:44)
[2018-10-23] MEDS: ASPIRIN EC 81 MG TABLET PO SCH (08:44)
[2018-10-23] MEDS: LOSARTAN 25 MG TABLET PO SCH (08:44)
[2018-10-23] MEDS: ALPRAZolam 0.25 MG TABLET PO SCH (08:44)
[2018-10-23 11:32] VITALS: BP 158/79
== END 2018-10-23 14:10 | DRG 65 ==
LOC: EDUNIT# → N.ED 15:14 → N.EDINP 17:15 → SUPCPDRO 17:15 → N.EDINP 18:05 → N.4E 18:11 → N.TELES 10-21 12:10
PROVIDERS: ADMIT Internal Medicine; ATTEND Internal Medicine